=== PATIENT | male | born 1970 | race Caucasian/White ===

== ENCOUNTER 2017-04-10 09:25 | Emergency (ER) | payer BC ==
[2017-04-10 09:41] VITALS: BMI 21.1
[2017-04-10] MEDS ORDERED: SODIUM CHLORIDE 1,000 ML IV STA ×2 (09:56→12:40)
--- NOTE | 2017-04-10 10:08 | PDOC ---
History of Present Illness - General Chief Complaint: Palpitations Stated Complaint: PALPITATIONS, HIGH BP/SUGAR LVL (DIABETIC) Time Seen by Provider: 04/10/17 09:47 History Source: Patient Exam Limitations: No Limitations - History of Present Illness Initial Comments: 04/10/17 10:05 The patient is a 46 year old male with a significant past medical history of hypertension, and diabetes type I (insulin dependent), presenting to the Emergency Department with palpitations, chest pain, and high blood sugar levels. The patient reports that he had two episodes of palpitations, the first was last night after a cup of coffee which resolved after taking two aspirin. He reports that this morning he woke up feeling fine, but started to experience palpitations and chest pain at work around 7:45. He describes the chest pain as an intermittent squeezing feeling in his chest. He admits that this morning his blood sugar was around 340, though it normally is around 200. He also reports that his left arm feels heavy, and reports dizziness. He states that he is compliant with his insulin, 10mg 3 times/day. His last echo was 5 months ago and last stress test was about 1 year ago. The patient denies nausea, vomiting, and diarrhea. Patient denies fever, chills , and cough. Patient denies headache, lightheadedness, and visual changes. Patient denies neck pain, or back pain. PCP: Dr. Abel Yadav Hx: denies cigarette smoking Past History - Past Medical History Allergies/Adverse Reactions: Allergies Allergy/AdvReac Type Severity Reaction Status Date / Time No Known Allergies Allergy Verified 04/10/17 09:28 Home Medications: Ambulatory Orders Albuterol Sulfate Inhaler - [Ventolin HFA Inhaler -] 2 inh PO Q4H 12/04/14 Insulin Aspart [Novolog Flexpen] 0 unit SQ TID 12/04/14 Insulin Lispro Protamin/Lispro [Humalog Mix 75-25 Kwikpen] 0 unit SQ TID Enalapril Maleate [Vasotec -] 10 mg PO DAILY 10/09/16 Diabetes: Yes (insulin dependant) HTN: Yes Psychiatric Problems: Yes (anxiety) Suicide Attempt (Hx): No - Surgical History Abdominal Surgery: Yes (HERNIA) - Family Disease History Family Disease History: Heart Disease: Mother - Immunization History Immunization Up to Date: Yes - Psycho/Social/Smoking Cessation Hx Anxiety: Yes Suicidal Ideation: No Smoking Status: Yes Smoking History: Never smoked Have you smoked in the past 12 months: No Number of Cigarettes Smoked Daily: 0 Information on smoking cessation initiated: No Hx Alcohol Use: No Drug/Substance Use Hx: No Substance Use Type: Alcohol Hx Substance Use Treatment: No Cardiac Specific PMH - Complaint Specific PMHX Valvular Heart Disease: No Review of Systems - Review of Systems Able to Perform ROS?: Yes Comments:: 04/10/17 10:06 CONSTITUTIONAL: Reported: + high blood sugar No reported: Fever, Chills, Diaphoresis, Generalized Weakness, Malaise, Loss of Appetite HEENT: No reported: Rhinorrhea, Nasal Congestion, Throat Pain, Throat Swelling, Difficulty Swallowing, Mouth Swelling, Ear Pain, Eye Pain, Visual Changes CARDIOVASCULAR: Reported: + intermittent squeezing chest pain, + palpitations, + left arm "heaviness" No reported: Syncope, Irregular Heart Rate, Lightheadedness, Peripheral Edema RESPIRATORY: No reported: Cough, Shortness of Breath, SOB with Exertion, Orthopnea, Wheezing , Stridor, Hemoptysis GASTROINTESTINAL: No reported: Abdominal pain, Abdominal Distension, Nausea, Vomiting, Diarrhea, Constipation, Melena, Hematochezia GENITOURINARY: No reported: Dysuria, Frequency, Urgency, Hesitancy, Flank Pain, Genital Pain MUSCULOSKELETAL: No reported: Myalgia, Arthralgia, Joint Swelling, Back pain, Neck Pain SKIN: No reported: Rash, Itching, Pallor HEMATOLOGIC/IMMUNOLOGIC: No reported: Easy Bleeding, Easy Bruising, Lymphadenopathy, Frequent infections ENDOCRINE: No reported: Unexplained Weight Gain, Unexplained Weight Loss, Heat Intolerance , Cold Intolerance NEUROLOGIC: Reported: + dizziness No reported: Headache, Focal Weakness, Paresthesias, Vertigo, Lightheadedness, Unsteady Gait, Seizure, Mental Status Changes, Incontinence PSYCHIATRIC: No reported: Anxiety, Depression *Physical Exam - Vital Signs Last Vital Signs Temp Pulse Resp BP Pulse Ox 98.2 F 86 16 120/67 100 04/10/17 09:28 04/10/17 09:28 04/10/17 09:28 04/10/17 09:28 04/10/17 09:28 - Physical Exam Comments: 04/10/17 10:09 GENERAL: The patient is awake, alert, and fully oriented, Nontoxic - in no acute distress. HEAD: Normocephalic, atraumatic. EYES: extraocular movements intact, sclera anicteric, conjunctiva clear. ENT: Normal voice, Moist mucous membranes. NECK: Normal range of motion, No JVD LUNGS: Breath sounds equal, clear to auscultation bilaterally. No wheezes, no rhonchi, no rales. HEART: Regular rate and rhythm, normal S1 and S2 without murmur, rub or gallop. ABDOMEN: Soft, nontender, normoactive bowel sounds. No guarding, no rebound. No masses. No CVA tenderness EXTREMITIES: Normal range of motion, no edema. No clubbing or cyanosis. No cords , erythema, or tenderness. NEUROLOGICAL: No facial asymmetry, Normal speech, normal gait. PSYCH: Normal mood, normal affect. SKIN: Warm, Dry, normal turgor. *DC/Admit/Observation/Transfer - Referrals Referrals: Abel Moore MD [Primary Care Provider] - - Attestations Scribe Attestion: 04/10/17 10:08 Documentation prepared by Chela Rutledge, acting as medical staff manager for Denis Bradford MD.
--- NOTE | 2017-04-10 10:16 | PDOC ---
History of Present Illness - General History Source: Patient Exam Limitations: No Limitations - History of Present Illness Initial Comments: 04/10/17 10:18 The patient is a 46 year old male with a significant past medical history of hypertension, and diabetes type I (insulin dependent), presenting to the Emergency Department with palpitations, chest pain, and high blood sugar levels. The patient reports that he had two episodes of palpitations, the first was last night after a cup of coffee which resolved after taking two aspirin. He reports that this morning he woke up feeling fine, but started to experience palpitations and chest pain at work around 7:45. He describes the chest pain as an intermittent squeezing feeling in his chest. He admits that this morning his blood sugar was around 340, though it normally is around 200. He also reports that his left arm feels heavy, and reports dizziness. He states that he is compliant with his insulin, 10mg 3 times/day. His last echo was 5 months ago and last stress test was about 1 year ago. The patient denies nausea, vomiting, and diarrhea. Patient denies fever, chills , and cough. Patient denies headache, lightheadedness, and visual changes. Patient denies neck pain, or back pain. PCP: Dr. Abel Yadav Hx: denies cigarette smoking <Chela Rutledge - Last Filed: 04/10/17 11:31> - General History Source: Patient, Old Records Exam Limitations: No Limitations <Denis Bradford - Last Filed: 04/10/17 17:19> - General Chief Complaint: Palpitations Stated Complaint: PALPITATIONS, HIGH BP/SUGAR LVL (DIABETIC) Time Seen by Provider: 04/10/17 09:47 Past History <Chela Rutledge - Last Filed: 04/10/17 11:31> - Past Medical History Diabetes: Yes (insulin dependant) HTN: Yes Psychiatric Problems: Yes (anxiety) Suicide Attempt (Hx): No - Surgical History Abdominal Surgery: Yes (HERNIA) - Family Disease History Family Disease History: Heart Disease: Mother - Immunization History Immunization Up to Date: Yes - Psycho/Social/Smoking Cessation Hx Anxiety: Yes Suicidal Ideation: No Smoking Status: Yes Smoking History: Never smoked Have you smoked in the past 12 months: No Number of Cigarettes Smoked Daily: 0 Information on smoking cessation initiated: No Hx Alcohol Use: No Drug/Substance Use Hx: No Substance Use Type: Alcohol Hx Substance Use Treatment: No <Denis Bradford - Last Filed: 04/10/17 17:19> - Past Medical History Allergies/Adverse Reactions: Allergies Allergy/AdvReac Type Severity Reaction Status Date / Time No Known Allergies Allergy Verified 04/10/17 09:28 Home Medications: Ambulatory Orders Insulin Aspart [Novolog Flexpen] 0 unit SQ PRN 12/04/14 Insulin Lispro Protamin/Lispro [Humalog Mix 75-25 Kwikpen] 10 unit SQ TID Enalapril Maleate [Vasotec -] 10 mg PO DAILY 10/09/16 Paroxetine HCl 10 mg PO DAILY 04/10/17 Review of Systems - Review of Systems Able to Perform ROS?: Yes Comments:: 04/10/17 10:18 CONSTITUTIONAL: Reported: + high blood sugar No reported: Fever, Chills, Diaphoresis, Generalized Weakness, Malaise, Loss of Appetite HEENT: No reported: Rhinorrhea, Nasal Congestion, Throat Pain, Throat Swelling, Difficulty Swallowing, Mouth Swelling, Ear Pain, Eye Pain, Visual Changes CARDIOVASCULAR: Reported: + intermittent squeezing chest pain, + palpitations, + left arm "heaviness" No reported: Syncope, Irregular Heart Rate, Lightheadedness, Peripheral Edema RESPIRATORY: No reported: Cough, Shortness of Breath, SOB with Exertion, Orthopnea, Wheezing , Stridor, Hemoptysis GASTROINTESTINAL: No reported: Abdominal pain, Abdominal Distension, Nausea, Vomiting, Diarrhea, Constipation, Melena, Hematochezia GENITOURINARY: No reported: Dysuria, Frequency, Urgency, Hesitancy, Flank Pain, Genital Pain MUSCULOSKELETAL: No reported: Myalgia, Arthralgia, Joint Swelling, Back pain, Neck Pain SKIN: No reported: Rash, Itching, Pallor HEMATOLOGIC/IMMUNOLOGIC: No reported: Easy Bleeding, Easy Bruising, Lymphadenopathy, Frequent infections ENDOCRINE: No reported: Unexplained Weight Gain, Unexplained Weight Loss, Heat Intolerance , Cold Intolerance NEUROLOGIC: Reported: + dizziness No reported: Headache, Focal Weakness, Paresthesias, Vertigo, Lightheadedness, Unsteady Gait, Seizure, Mental Status Changes, Incontinence PSYCHIATRIC: No reported: Anxiety, Depression <Chela Rutledge - Last Filed: 04/10/17 11:31> *Physical Exam - Vital Signs Last Vital Signs Temp Pulse Resp BP Pulse Ox 98.2 F 86 16 120/67 100 04/10/17 09:28 04/10/17 09:28 04/10/17 09:28 04/10/17 09:28 04/10/17 09:28 - Physical Exam Comments: 04/10/17 10:19 GENERAL: The patient is awake, alert, and fully oriented, Nontoxic - in no acute distress. HEAD: Normocephalic, atraumatic. EYES: extraocular movements intact, sclera anicteric, conjunctiva clear. ENT: Normal voice, Moist mucous membranes. NECK: Normal range of motion, No JVD LUNGS: Breath sounds equal, clear to auscultation bilaterally. No wheezes, no rhonchi, no rales. HEART: Regular rate and rhythm, normal S1 and S2 without murmur, rub or gallop. ABDOMEN: Soft, nontender, normoactive bowel sounds. No guarding, no rebound. No masses. No CVA tenderness EXTREMITIES: Normal range of motion, no edema. No clubbing or cyanosis. No cords , erythema, or tenderness. NEUROLOGICAL: No facial asymmetry, Normal speech, normal gait. PSYCH: Normal mood, normal affect. SKIN: Warm, Dry, normal turgor. <Chela Rutledge - Last Filed: 04/10/17 11:31> - Vital Signs Last Vital Signs Temp Pulse Resp BP Pulse Ox 98.2 F 86 16 120/67 100 04/10/17 09:28 04/10/17 09:28 04/10/17 09:28 04/10/17 09:28 04/10/17 09:28 <Denis Bradford - Last Filed: 04/10/17 17:19> Heart Score/ECG Review #1 ECG reviewed & interpreted by me at: 09:55 04/10/17 10:01 NSR 81, normal axis, normal intervals, QTC 394 msec, concave upward JULIANNE II, V3- V6 with no reciprocal depression. unchanged from October 09, 2016 <Denis Bradford - Last Filed: 04/10/17 17:19> ED Treatment Course - LABORATORY CBC & Chemistry Diagram: 04/10/17 10:19 04/10/17 10:19 - RADIOLOGY Radiograph Interpretation: 04/10/17 11:00 Chest XRay As reviewed by Dr. Elizabeth Jasso IMPRESSION: No acute disease in the chest. <Chela Rutledge - Last Filed: 04/10/17 11:31> - LABORATORY CBC & Chemistry Diagram: 04/10/17 10:19 04/10/17 10:19 - RADIOLOGY Radiology Studies Ordered: Category Date Time Status CHEST PA & LAT [RAD] Stat Radiology 04/10/17 09:56 Ordered <Denis Bradford - Last Filed: 04/10/17 17:19> Medical Decision Making - Medical Decision Making 04/10/17 11:31 Dr. Moore was called at his office at 11:25. Dr. Moore returned call and spoke to Dr. Bradford about the patient's care. <Chela Rutledge - Last Filed: 04/10/17 11:31> - Medical Decision Making 04/10/17 10:02 A portion of this note was documented by scribe services under my direction. I have reviewed the details of the note, within reason, and agree with the documentation with the following case summary and management plan written by me. Patient treated in the ED. Nursing notes are reviewed and incorporated into the medical decision-making. Vital signs reviewed. Peripheral IV access obtained by the nurse, laboratory studies are drawn and sent, reviewed and interpreted by myself. Vital Signs Temp Pulse Resp BP Pulse Ox 98.2 F 86 16 120/67 100 04/10/17 09:28 04/10/17 09:28 04/10/17 09:28 04/10/17 09:28 04/10/17 09:28 46-year-old male with past medical history of type 1 diabetes who takes 10 units of insulin 3 times a day who presents with palpitations and chest discomfort. The patient reports yesterday, he had drinking a coffee and started developing palpitations that lasted for several hours that improved with 2 baby aspirins and his paroxetine, which he has been taken for his anxiety. Stated that his symptoms improved. However, patient was on his way to work when he felt some her symptoms including chest discomfort radiating to left arm but no sepsis short of breath. Nonexertional. He came to the ED for evaluation. The patient had an echocardiogram 6 months ago reportedly negative and a walking stress test one year ago reportedly negative. Patient states that he had these similar symptoms before and was told that it was anxiety. He has also noted that his sugars are elevated 300s despite taking his insulin. We'll rule out DKA. We'll also rule out my [place]. However, I suspect that this is more likely anxiety and cardiac. Patient will need two troponins and we'll touch base with the patient's primary care physician. 04/10/17 17:15 CBC, BMP 04/10/17 10:19 04/10/17 10:19 CMP Sodium 138 mmol/L (136-145) 04/10/17 10:19 Potassium 3.7 mmol/L (3.5-5.1) 04/10/17 10:19 Chloride 104 mmol/L (98-107) 04/10/17 10:19 Carbon Dioxide 27 mmol/L (21-32) 04/10/17 10:19 Anion Gap 7 (8-16) L 04/10/17 10:19 BUN 11 mg/dL (7-18) D 04/10/17 10:19 Creatinine 1.1 mg/dL (0.7-1.3) 04/10/17 10:19 Creat Clearance w eGFR > 60 (>60) 04/10/17 10:19 POC Glucometer [id number] UNITS (()) 04/10/17 12:19 Random Glucose 34 mg/dL (74-106) L* D 04/10/17 10:19 Calcium 9.3 mg/dL (8.5-10.1) 04/10/17 10:19 Total Bilirubin 0.5 mg/dL (0.2-1.0) D 04/10/17 10:19 AST 19 U/L (15-37) 04/10/17 10:19 ALT 22 U/L (12-78) 04/10/17 10:19 Alkaline Phosphatase 94 U/L (45-117) D 04/10/17 10:19 Creatine Kinase 81 IU/L (39-308) 04/10/17 16:01 Troponin I < 0.02 ng/ml (0.00-0.05) 04/10/17 16:01 Total Protein 7.5 g/dl (6.4-8.2) D 04/10/17 10:19 Albumin 4.1 g/dl (3.4-5.0) D 04/10/17 10:19 Lipase 143 U/L (73-393) 04/10/17 10:19 Patient's troponin is negative x 2. Pt's pain started at 7:30 am. 2nd trop drawn at 3:30 pm. I had discussed with Dr. Moore. I suspect this is likely anxiety. Patient feels much more reasurred. He agrees that the patient can follow up as an outpatient with him. NOted is glucose of 34 which was given amp of dextrose and juice. Pt confirms that he had taken his insulin this morning but forgot to eat with it. After observing for several hours, patient feels well and would like to go home. Discharge diagnosis: atypical chest pain I discussed the physical exam findings, ancillary test results and final diagnoses with the patient. I answered all of the patient's questions. The patient was satisfied with the care received and felt comfortable with the discharge plan and treatment plan. The patient will call their primary care physician within 24 hours to arrange follow-up and will return to the Emergency Department with any new, persistant or worsening symptoms. <Denis Bradford - Last Filed: 04/10/17 17:19> *DC/Admit/Observation/Transfer - Attestations Scribe Attestion: 04/10/17 10:20 Documentation prepared by Chela Rutledge, acting as medical imaging tech for Denis Bradford MD. <Chela Rutledge - Last Filed: 04/10/17 11:31> - Discharge Dispostion Admit: No <Denis Bradford - Last Filed: 04/10/17 17:19> Diagnosis at time of Disposition: Atypical chest pain - Discharge Dispostion Disposition: HOME Condition at time of disposition: Good - Referrals Referrals: Abel Moore MD [Primary Care Provider] - - Patient Instructions Printed Discharge Instructions: DI for Atypical Chest Pain Additional Instructions: Your EKG, blood work and chest x-ray is unremarkable. Please follow-up with your primary care physician.
[2017-04-10 10:32] LABS: BASOPHIL 0.5 % (0-2.0); MCH 30.4 pg (25.7-33.7); MCHC 34.6 g/dl (32.0-35.9); MEAN CELL VOLUME 87.8 fl (80-96); MEAN PLT VOLUME 10.5 fl (7.5-11.1); NEUTROPHILS 54.1 % (42.8-82.8); PLATELET COUNT 223 K/MM3 (134-434); RDW 13.1 % (11.9-15.9); WHITE BLOOD COUNT 7.3 K/mm3 (4.0-10.0)
[2017-04-10 10:34] LABS: URINE APPEARANCE CLEAR; URINE BILIRUBIN NEGATIVE (NEGATIVE); URINE BLOOD NEGATIVE (NEGATIVE); URINE COLOR YELLOW; URINE GLUCOSE (UA) 3+ (NEGATIVE); URINE KETONE TRACE (NEGATIVE); URINE LEUK ESTERASE NEGATIVE (NEGATIVE); URINE NITRITE NEGATIVE (NEGATIVE); URINE PROTEIN NEGATIVE (NEGATIVE); URINE UROBILINOGEN NEGATIVE E.U./dl (0.2-1.0)
[2017-04-10 11:00] LABS: ALBUMIN 4.1 g/dl (3.4-5.0); ANION GAP 7 (8-16); BILIRUBIN,TOTAL 0.5 mg/dL (0.2-1.0); CALCIUM 9.3 mg/dL (8.5-10.1); CO2 27 mmol/L (21-32); COCKROFT - GAULT 84.8; CREATININE 1.1 mg/dL (0.7-1.3); SGOT/AST 19 U/L (15-37); SGPT/ALT 22 U/L (12-78); TOT PROT 7.5 g/dl (6.4-8.2)
[2017-04-10 11:03] LABS: ALK PHOS 94 U/L (45-117); TROPONIN I < 0.02 ng/ml (0.00-0.05)
[2017-04-10 11:10] LABS: GLUCOSE,RANDOM 34 mg/dL (74-106)
[2017-04-10] MEDS ORDERED: DEXTROSE 50%-WATER 50 ML VIAL IVPUSH ONE (11:14)
[2017-04-10] MEDS ORDERED: DEXTROSE 50%-WATER 50 ML DISP.SYRIN ONE (11:16)
[2017-04-10 11:54] LABS: ACETONE SERUM NEGATIVE (NEGATIVE)
[2017-04-10] MEDS ORDERED: HEMOQUE TEST 1 EACH EACH ONE (12:16)
--- NOTE | 2017-04-10 16:29 | EKG ---
Test Reason : Blood Pressure : / mmHG Vent. Rate : 081 BPM Atrial Rate : 081 BPM P-R Int : 146 ms QRS Dur : 088 ms QT Int : 340 ms P-R-T Axes : 075 074 061 degrees QTc Int : 394 ms NORMAL SINUS RHYTHM EARLY REPOLARIZATION NORMAL ECG WHEN COMPARED WITH ECG OF 09-OCT-2016 07:56, NO SIGNIFICANT CHANGE WAS FOUND Confirmed by JADON CHAN MD ([id number]) on 04/10/2017 4:29:20 PM Referred By: Confirmed By:JADON CHAN MD
[2017-04-10 16:50] LABS: TROPONIN I < 0.02 ng/ml (0.00-0.05)
[2017-04-10 18:15] VITALS: BP 114/73; PULSE 68; TEMP 98.1
== END 2017-04-10 17:40 | disposition home or self-care (01) ==
LOC: JER 09:25
PROC: 3E0337Z Introduction of Electrolytic and Water Balance Substance into Peripheral Vein, Percutaneous Approach (ICD-10-PCS; principal; 2017-04-10)
PROC: 3E033GC Introduction of Other Therapeutic Substance into Peripheral Vein, Percutaneous Approach (ICD-10-PCS; 2017-04-10)
DX: R07.89 Other chest pain (principal); E10.65 Type 1 diabetes mellitus with hyperglycemia; Z79.4 Long term (current) use of insulin; F41.9 Anxiety disorder, unspecified
CPT/HCPCS: 36415; 71020-TC; 80053; 81003; 82009; 82550; 83690; 84484; 85025; 93005; 93010; 99285-25

== ENCOUNTER 2017-09-02 21:36 | Emergency (ER) | payer BC ==
[2017-09-02 21:47] VITALS: BP 144/83; PULSE 69; TEMP 98.4; BMI 20.6
--- NOTE | 2017-09-02 22:22 | PDOC ---
History of Present Illness - General History Source: Patient Exam Limitations: No Limitations - History of Present Illness Initial Comments: 09/02/17 22:40 The patient is a 46 year old male, with a significant past medical history of IDDM, HTN, Anxiety who presents to the emergency department with chest pain today. Patient states there was jobsite accident which resulted in construction material collapsing. Patient and fellow employees were unharmed however since the incident, patient has been increasingly anxious. Patient experienced chest pain associated with palpitations, SOB and nausea. Patient describes pain is midsternal, nonradiating associated with SOB upon deep inspiration. Patient reports taking an Aspirin 81 mg with no relief. He denies headache or dizziness. He denies fever, chills, abdominal pain, nausea , vomit, diarrhea or constipation. He denies dysuria, frequency, urgency or hematuria. Patient denies sick contacts or recent travel. <Amanda Romero - Last Filed: 09/02/17 22:40> - General History Source: Patient <Av Sethi - Last Filed: 09/03/17 19:31> - General Chief Complaint: Chest Pain Stated Complaint: CHEST PAIN Time Seen by Provider: 09/02/17 22:17 Past History <Amanda Romero - Last Filed: 09/02/17 22:40> - Past Medical History Diabetes: Yes (insulin dependant) HTN: Yes Psychiatric Problems: Yes (anxiety) - Surgical History Abdominal Surgery: Yes (HERNIA) - Family Disease History Family Disease History: Heart Disease: Mother - Immunization History Immunization Up to Date: Yes - Suicide/Smoking/Psychosocial Hx Smoking Status: Yes Smoking History: Never smoked Have you smoked in the past 12 months: No Number of Cigarettes Smoked Daily: 0 Hx Alcohol Use: No Drug/Substance Use Hx: No Substance Use Type: Alcohol Hx Substance Use Treatment: No <Av Sethi - Last Filed: 09/03/17 19:31> - Past Medical History Allergies/Adverse Reactions: Allergies Allergy/AdvReac Type Severity Reaction Status Date / Time No Known Allergies Allergy Verified 09/02/17 21:44 Home Medications: Ambulatory Orders Insulin Aspart [Novolog Flexpen] 0 unit SQ PRN 12/04/14 Insulin Lispro Protamin/Lispro [Humalog Mix 75-25 Kwikpen] 10 unit SQ TID 01/25/ 15 Enalapril Maleate [Vasotec -] 10 mg PO DAILY 10/09/16 Paroxetine HCl 10 mg PO DAILY 04/10/17 Insulin Degludec [Tresiba Flextouch U-100] 100 unit SQ HS 09/02/17 Review of Systems - Review of Systems Able to Perform ROS?: Yes Comments:: 09/02/17 22:51 CONSTITUTIONAL: Absent: fever, chills, diaphoresis, generalized weakness, malaise, loss of appetite HEENT: Absent: rhinorrhea, nasal congestion, throat pain, throat swelling, difficulty swallowing, mouth swelling, ear pain, eye pain, visual Changes CARDIOVASCULAR: +chest pain, palpitations. Absent: syncope, irregular heart rate, lightheadedness, peripheral edema RESPIRATORY: +shortness of breath Absent: cough, dyspnea with exertion, orthopnea, wheezing, stridor, hemoptysis GASTROINTESTINAL: +nausea Absent: abdominal pain, abdominal distension, vomiting, diarrhea, constipation, melena, hematochezia GENITOURINARY: Absent: dysuria, frequency, urgency, hesitancy, hematuria, flank pain, genital pain MUSCULOSKELETAL: Absent: myalgia, arthralgia, joint swelling SKIN: Absent: rash, itching, pallor HEMATOLOGIC/IMMUNOLOGIC: Absent: easy bleeding, easy bruising, lymphadenopathy, frequent infections ENDOCRINE: Absent: unexplained weight gain, unexplained weight loss, heat intolerance, cold intolerance NEUROLOGIC: Absent: headache, focal weakness or paresthesias, dizziness, unsteady gait, seizure, mental status changes, bladder or bowel incontinence PSYCHIATRIC: Absent: anxiety, depression, suicidal or homicidal ideation, hallucinations. <Amanda Romero - Last Filed: 09/02/17 22:40> *Physical Exam - Vital Signs Last Vital Signs Temp Pulse Resp BP Pulse Ox 98.4 F 69 20 144/83 100 09/02/17 21:44 09/02/17 21:44 09/02/17 21:44 09/02/17 21:44 09/02/17 21:44 - Physical Exam Comments: 09/02/17 22:51 GENERAL: Well developed, well nourished. Awake and alert. In no acute distress. HEENT: Normocephalic, atraumatic. PERRLA, EOMI. No conjunctival pallor. Sclerae are non -icteric. Moist mucous membranes. Oropharynx is clear. NECK: Supple. Full ROM. No JVD. Carotid pulses 2+ and symmetric, without bruits. No thyromegaly. No lymphadenopathy. CARDIOVASCULAR: Regular rate and rhythm. No murmurs, rubs, or gallops. Distal pulses are 2+ and symmetric. PULMONARY: No evidence of respiratory distress. Lungs clear to auscultation bilaterally. No wheezing, rales or rhonchi. ABDOMINAL: Soft. Non-tender. Non-distended. No rebound or guarding. No organomegaly. Normoactive bowel sounds. MUSCULOSKELETAL Normal range of motion at all joints. No bony deformities or tenderness. No CVA tenderness. EXTREMITIES: No cyanosis. No clubbing. No edema. No calf tenderness. SKIN: Warm and dry. Normal capillary refill. No rashes. No jaundice. NEUROLOGICAL: Alert, awake, appropriate. Cranial nerves 2-12 intact. No deficits to light touch and temperature in face, upper extremities and lower extremities. No motor deficits in the in face, upper extremities and lower extremities. Normoreflexic in the upper and lower extremities. Normal speech. Toes are downgoing bilaterally. Gait is normal without ataxia. PSYCHIATRIC: Cooperative. Good eye contact. Appropriate mood and affect. <Amanda Romero - Last Filed: 09/02/17 22:40> - Vital Signs Last Vital Signs Temp Pulse Resp BP Pulse Ox 98.4 F 69 20 144/83 100 09/02/17 21:44 09/02/17 21:44 09/02/17 21:44 09/02/17 21:44 09/02/17 21:44 <Av Sethi - Last Filed: 09/03/17 19:31> ED Treatment Course - LABORATORY CBC & Chemistry Diagram: 09/02/17 22:37 09/02/17 22:37 <Av Sethi - Last Filed: 09/03/17 19:31> Medical Decision Making - Medical Decision Making 09/03/17 19:31 Dr. Sethi: The scribe's documentation has been prepared under my direction and personally reviewed by me in its entirery. I confirm that the note above accurately reflects all work, treatment, procedures, and medical decision making performed by me. <Av Sethi - Last Filed: 09/03/17 19:31> *DC/Admit/Observation/Transfer - Attestations Scribe Attestion: 09/02/17 22:51 Documentation prepared by Amanda Romero, acting as medical director/head team physician for Av Sethi DO. <Amanda Romero - Last Filed: 09/02/17 22:40> - Discharge Dispostion Admit: No <Av Sethi - Last Filed: 09/03/17 19:31> Diagnosis at time of Disposition: Chest pain - Patient Instructions Printed Discharge Instructions: DI for Chest Pain Additional Instructions: Please follow up with your doctor as soon as possible. Return if symptoms become worse. - Post Discharge Activity Forms/Work/School Notes: Back to Work
[2017-09-02 22:45] LABS: BASOPHIL 1.1 % (0-2.0); EOSINOPHIL 1.7 % (0-4.5); MCH 31.2 pg (25.7-33.7); MCHC 35.1 g/dl (32.0-35.9); MEAN CELL VOLUME 88.8 fl (80-96); MEAN PLT VOLUME 9.6 fl (7.5-11.1); NEUTROPHILS 54.7 % (42.8-82.8); PLATELET COUNT 225 K/MM3 (134-434); RDW 13.3 % (11.9-15.9)
[2017-09-02 23:06] LABS: INR 1.23 (0.82-1.09); PROTHROMBIN TIME (PATIENT) 13.9 SEC (9.98-11.88)
[2017-09-02 23:17] LABS: ALBUMIN 3.3 g/dl (3.4-5.0); ANION GAP 7 (8-16); CALCIUM 8.4 mg/dL (8.5-10.1); CO2 28 mmol/L (21-32); CREATININE 1.1 mg/dL (0.7-1.3); GLUCOSE,RANDOM 174 mg/dL (74-106); MAGNESIUM 2.1 mg/dL (1.8-2.4); SGOT/AST 15 U/L (15-37); SGPT/ALT 17 U/L (12-78)
[2017-09-02 23:21] LABS: ALK PHOS 71 U/L (45-117); BILIRUBIN,TOTAL 0.6 mg/dL (0.2-1.0); CPK 141 IU/L (39-308); TOT PROT 6.2 g/dl (6.4-8.2); TROPONIN I < 0.02 ng/ml (0.00-0.05)
--- NOTE | 2017-09-03 13:22 | EKG ---
Test Reason : Blood Pressure : / mmHG Vent. Rate : 058 BPM Atrial Rate : 058 BPM P-R Int : 130 ms QRS Dur : 094 ms QT Int : 402 ms P-R-T Axes : 070 066 053 degrees QTc Int : 394 ms SINUS BRADYCARDIA OTHERWISE NORMAL ECG WHEN COMPARED WITH ECG OF 10-APR-2017 09:32, NO SIGNIFICANT CHANGE WAS FOUND Confirmed by GRZEGORZ SPRAGUE MD ([id number]) on 09/03/2017 1:22:10 PM Referred By: Confirmed By:GRZEGORZ SPRAGUE MD
== END 2017-09-02 23:44 | disposition home or self-care (01) ==
LOC: JER 21:36
DX: R07.9 Chest pain, unspecified (principal); I10 Essential (primary) hypertension; E11.9 Type 2 diabetes mellitus without complications; R00.2 Palpitations; X58.XXXA Exposure to other specified factors, initial encounter; Y93.89 Activity, other specified; Y92.89 Other specified places as the place of occurrence of the external cause; Y99.0 Civilian activity done for income or pay
CPT/HCPCS: 36415; 80053; 82550; 83735; 84484; 85025; 85610; 93005; 93010; 99284-25

== ENCOUNTER 2018-05-17 00:52 | Emergency (ER) | payer OTHER ==
[2018-05-17 01:12] VITALS: BP 102/56; PULSE 60; TEMP 97.7; BMI 25.8
[2018-05-17] MEDS ORDERED: KETOROLAC TROMETHAMINE 60 MG/2 ML VIAL IM ONE (03:44)
[2018-05-17] MEDS ORDERED: diazePAM 5 MG TABLET PO ONE (03:44)
--- NOTE | 2018-05-17 03:46 | PDOC ---
History of Present Illness - General History Source: Patient Exam Limitations: No Limitations - History of Present Illness Initial Comments: 05/17/18 06:33 The patient is a 47 year old male with no significant past medical history who presents to the emergency department for evaluation of left sided back pain and left thigh pain. The patient reports a 3 week history of worsening left sided back pain. He describes the pain as radiating to the left leg. He notes he is required to lift heavy objects at his job which may have caused him some pain. Pt states worsening leg pain has become unbearable prompting him to visit the ED for further evaluation. The patient denies chest pain, shortness of breath, headache, and dizziness. Denies fever, chills, nausea, vomiting, and bowel/urinary symptoms. Allergies: NKDA Social History: No reported alcohol, cigarette, or drug use. PCP: Dr. Moore <Connor Thomas - Last Filed: 05/17/18 06:33> <Denisha Monzon - Last Filed: 05/18/18 04:53> - General Chief Complaint: Back Pain Stated Complaint: BACK INJURY Time Seen by Provider: 05/17/18 02:49 Past History <Connor Thomas - Last Filed: 05/17/18 06:33> - Past Medical History COPD: No Diabetes: Yes (insulin dependant) HTN: Yes Psychiatric Problems: Yes (anxiety) - Surgical History Abdominal Surgery: Yes (HERNIA) - Family Disease History Family Disease History: Heart Disease: Mother - Immunization History Immunization Up to Date: Yes - Suicide/Smoking/Psychosocial Hx Smoking Status: Yes Smoking History: Never smoked Have you smoked in the past 12 months: No Number of Cigarettes Smoked Daily: 0 Information on smoking cessation initiated: No Hx Alcohol Use: No Drug/Substance Use Hx: No Substance Use Type: Alcohol Hx Substance Use Treatment: No <Denisha Monzon - Last Filed: 05/18/18 04:53> - Past Medical History Allergies/Adverse Reactions: Allergies Allergy/AdvReac Type Severity Reaction Status Date / Time No Known Allergies Allergy Verified 05/17/18 01:10 Home Medications: Ambulatory Orders Enalapril Maleate [Vasotec -] 10 mg PO DAILY 10/09/16 Insulin Pump Cartridge [Omnipod] 1 each SQ ASDIR 04/20/18 Ibuprofen [Motrin -] 600 mg PO TID #30 tablet 05/17/18 Methocarbamol [Robaxin -] 500 mg PO TID #30 tablet 05/17/18 Review of Systems - Review of Systems Able to Perform ROS?: Yes Comments:: GENERAL/CONSTITUTIONAL: No fever or chills. No weakness. HEAD, EYES, EARS, NOSE AND THROAT: No change in vision. No ear pain or discharge. No sore throat. CARDIOVASCULAR: No chest pain or shortness of breath. RESPIRATORY: No cough, wheezing, or hemoptysis. GASTROINTESTINAL: No nausea, vomiting, diarrhea or constipation. GENITOURINARY: No dysuria, frequency, or change in urination. MUSCULOSKELETAL: (+)Left sided back pain. (+)Left leg pain. SKIN: No rash NEUROLOGIC: No headache, vertigo, loss of consciousness, or change in strength/ sensation. ENDOCRINE: No increased thirst. No abnormal weight change. HEMATOLOGIC/LYMPHATIC: No anemia, easy bleeding, or history of blood clots. ALLERGIC/IMMUNOLOGIC: No hives or skin allergy. <Connor Thomas - Last Filed: 05/17/18 06:33> *Physical Exam - Vital Signs Last Vital Signs Temp Pulse Resp BP Pulse Ox 97.7 F 60 20 102/56 99 05/17/18 01:10 05/17/18 01:10 05/17/18 01:10 05/17/18 01:10 05/17/18 01:10 - Physical Exam Comments: GENERAL: Awake, alert, and fully oriented, in no acute distress HEAD: No signs of trauma EYES: PERRLA, EOMI, sclera anicteric, conjunctiva clear ENT: Auricles normal inspection, hearing grossly normal, nares patent, oropharynx clear without exudates. Moist mucosa NECK: Normal ROM, supple, no lymphadenopathy, JVD, or masses LUNGS: Breath sounds equal, clear to auscultation bilaterally. No wheezes, and no crackles HEART: Regular rate and rhythm, normal S1 and S2, no murmurs, rubs or gallops ABDOMEN: Soft, nontender, normoactive bowel sounds. No guarding, no rebound. No masses BACK: (+)Lumbar tenderness over the spine. Severe paraspinal spasm in lumbar area. EXTREMITIES: Normal range of motion, no edema. No clubbing or cyanosis. No cords, erythema, or tenderness NEUROLOGICAL: Cranial nerves II through XII grossly intact. Normal speech, normal gait SKIN: Warm, Dry, normal turgor, no rashes or lesions noted. <Connor Thomas - Last Filed: 05/17/18 06:33> - Vital Signs Last Vital Signs Temp Pulse Resp BP Pulse Ox 97.7 F 60 20 102/56 99 05/17/18 01:10 05/17/18 01:10 05/17/18 01:10 05/17/18 01:10 05/17/18 01:10 <Denisha Monzon - Last Filed: 05/18/18 04:53> ED Treatment Course - Medications Given in the ED: ED Medications Discontinued Medications Generic Name Dose Route Start Last Admin Trade Name Heber PRN Reason Stop Dose Admin Diazepam 5 mg 05/17/18 03:44 05/17/18 04:06 Valium - PO 05/17/18 03:45 5 mg ONCE ONE Administration Ketorolac Tromethamine 60 mg 05/17/18 03:44 05/17/18 04:05 Toradol Injection - IM 05/17/18 03:45 60 mg ONCE ONE Administration Oxycodone/Acetaminophen 2 combo 05/17/18 03:44 05/17/18 04:05 Percocet 5/325 - PO 05/17/18 03:45 2 combo ONCE ONE Administration <Connor Thomas - Last Filed: 05/17/18 06:33> Medical Decision Making - Medical Decision Making 05/17/18 05:44 Patient Name: ISAAC GONZALEZ THIS IS A PRELIMINARY REPORT FROM [facility] DATE OF SERVICE: 2018-05-17 04:39:28 IMAGES: 409 EXAM: CT LUMBAR SPINE CT W/O CONTRAST HISTORY: Lower back pain COMPARISON: None. FINDINGS: Lumbar vertebral bodies are morphologically normal with no fracture. Intervertebral disc spaces appear normal in height. There is a small disc bulge at L3-L4 with mild central spinal canal stenosis. There is a small central bulge at L4-L5 without stenosis IMPRESSION: Small disc bulge at L3-L4 with mild stenosis 05/18/18 04:52 Pt will follow with ortho spine and neuro and he can get an MRI for further eval of his illness. <Denisha Monzon - Last Filed: 05/18/18 04:53> *DC/Admit/Observation/Transfer - Attestations Scribe Attestion: Documentation prepared by Connor Thomas, acting as medical device sales representative for Denisha Monzon MD. <Connor Thomas - Last Filed: 05/17/18 06:33> - Discharge Dispostion Decision to Admit order: No <Denisha Monzon - Last Filed: 05/18/18 04:53> Diagnosis at time of Disposition: Bulging lumbar disc, Spinal stenosis of lumbar region, Radiculopathy due to lumbar intervertebral disc disorder - Discharge Dispostion Disposition: HOME Condition at time of disposition: Stable - Prescriptions Prescriptions: Ibuprofen [Motrin -] 600 mg PO TID #30 tablet Methocarbamol [Robaxin -] 500 mg PO TID #30 tablet - Referrals Referrals: Abel Moore MD [Primary Care Provider] - Jose Do MD [Staff Physician] - - Patient Instructions Printed Discharge Instructions: Spinal Stenosis, Herniated Disc, Lumbar Radiculopathy - Post Discharge Activity Forms/Work/School Notes: Back to Work
[2018-05-17] MEDS ORDERED: diazePAM 5 MG TABLET ONE (03:56)
[2018-05-17] MEDS ORDERED: KETOROLAC TROMETHAMINE 60 MG/2 ML VIAL ONE (03:56)
== END 2018-05-17 06:00 | disposition home or self-care (01) ==
LOC: JER 00:52
PROC: 3E0233Z Introduction of Anti-inflammatory into Muscle, Percutaneous Approach (ICD-10-PCS; principal; 2018-05-17)
DX: M54.16 Radiculopathy, lumbar region (principal); M48.061 Spinal stenosis, lumbar region without neurogenic claudication
CPT/HCPCS: 72131-TC; 99281-25

== ENCOUNTER 2019-11-09 19:59 | Emergency (ER) | payer OTHER ==
[2019-11-09 20:20] VITALS: BMI 23.5
[2019-11-09] MEDS ORDERED: SODIUM CHLORIDE 1,000 ML IV STA ×2 (20:46→22:25)
[2019-11-09] MEDS ORDERED: ONDANSETRON 4 MG/2 ML VIAL IVPUSH ONE (20:46)
[2019-11-09] MEDS ORDERED: ACETAMINOPHEN 1000 MG/100 ML VIAL (NON FORMULARY) IVPB ONE (20:46)
[2019-11-09] MEDS ORDERED: FAMOTIDINE 20 MG/50 ML IVPB 20 MG/50 ML MG IVPB ONE ×2 (20:46→20:54)
[2019-11-09] MEDS ORDERED: ONDANSETRON 4 MG/2 ML VIAL ONE (20:54)
[2019-11-09] MEDS ORDERED: ACETAMINOPHEN INJECTION 100 ML IVPB ONE (20:54)
--- NOTE | 2019-11-09 21:06 | PDOC ---
History of Present Illness - General Chief Complaint: Nausea/Vomiting Stated Complaint: FLU SYX Time Seen by Provider: 11/09/19 20:34 History Source: Patient Exam Limitations: No Limitations - History of Present Illness Initial Comments: 11/09/19 21:07 Patient is 48M with history of T1DM here today complaining of 1 day of fever, chills, vomiting and bodyaches. Patient reports several positive sick contacts in his family. He also complains of some chest pain after an episode of vomiting. Patient reports that his blood sugars have spiked to the 500s. Endorses associated headaches. Denies abdominal pain, dysuria. Past History - Past Medical History Allergies/Adverse Reactions: Allergies Allergy/AdvReac Type Severity Reaction Status Date / Time No Known Allergies Allergy Verified 05/17/18 01:10 Home Medications: Ambulatory Orders Insulin Glargine,Hum.rec.anlog [Basaglar Kwikpen U-100] 11 unit SQ HS 11/09/19 Insulin Lispro [Admelog Solostar] 9 unit SQ TID 11/09/19 Oseltamivir Phosphate [Tamiflu -] 75 mg PO BID #10 capsule 11/09/19 COPD: No Diabetes: Yes (insulin dependant) HTN: Yes Psychiatric Problems: Yes (anxiety) - Surgical History Abdominal Surgery: Yes (HERNIA) - Immunization History Immunization Up to Date: Yes - Psycho Social/Smoking Cessation Hx Smoking Status: Yes Smoking History: Never smoked Have you smoked in the past 12 months: No Number of Cigarettes Smoked Daily: 0 Hx Alcohol Use: No Drug/Substance Use Hx: No Substance Use Type: Alcohol Hx Substance Use Treatment: No Review of Systems - Review of Systems Able to Perform ROS?: Yes Comments:: 11/09/19 21:10 GENERAL/CONSTITUTIONAL: +fever +chills. No weakness. HEAD, EYES, EARS, NOSE AND THROAT: No change in vision. No sore throat. CARDIOVASCULAR: No chest pain or shortness of breath RESPIRATORY: +cough, no wheezing, or hemoptysis. GASTROINTESTINAL: +nausea, +vomiting, no diarrhea or constipation. GENITOURINARY: No dysuria, frequency, or change in urination. MUSCULOSKELETAL: +myalgias. No neck or back pain. SKIN: No rash NEUROLOGIC: +headache, no vertigo, loss of consciousness, or change in strength/ sensation. ENDOCRINE: No increased thirst. No abnormal weight change HEMATOLOGIC/LYMPHATIC: No anemia, easy bleeding, or history of blood clots. ALLERGIC/IMMUNOLOGIC: No hives or skin allergy. *Physical Exam - Vital Signs Last Vital Signs Temp Pulse Resp BP Pulse Ox 102.4 F H 107 H 20 127/66 98 11/09/19 20:08 11/09/19 20:08 11/09/19 20:08 11/09/19 20:08 11/09/19 20:08 - Physical Exam 11/09/19 21:11 GENERAL: Awake, alert, and fully oriented, ill appearing HEAD: No signs of trauma, normocephalic, atraumatic EYES: PERRLA, EOMI, sclera anicteric, conjunctiva clear ENT: Auricles normal inspection, hearing grossly normal, nares patent, oropharynx clear without exudates. Moist mucosa NECK: Normal ROM, supple, no lymphadenopathy, JVD, or masses LUNGS: No distress, speaks full sentences, clear to auscultation bilaterally HEART: Regular rhythm, tachycardic, normal S1 and S2, no murmurs, rubs or gallops, peripheral pulses normal and equal bilaterally. ABDOMEN: Soft, nontender, normoactive bowel sounds. No guarding, no rebound. No masses EXTREMITIES: Normal inspection, Normal range of motion, no edema. No clubbing or cyanosis. NEUROLOGICAL: Cranial nerves II through XII grossly intact. Normal speech, no focal sensorimotor deficits SKIN: Warm, Dry, normal turgor, no rashes or lesions noted. ED Treatment Course - LABORATORY CBC & Chemistry Diagram: 11/09/19 21:15 11/09/19 21:15 - RADIOLOGY Radiology Studies Ordered: Category Date Time Status CHEST X-RAY PORTABLE* [RAD] Stat Radiology 11/09/19 20:48 Taken Medical Decision Making - Medical Decision Making 11/09/19 21:12 Patient is 48M with history of IDDM here today complaining of flu like symptoms and concern for DKA. Vitals notable for fever, tachycardia. Will workup broadly given T1DM and possible dka. DDx includes, but is not limited to: flu, other viral syndrome, pneumonia. Will treat with fluids, tylenol, zofran, pepcid. Dispo pending source, dka evaluation. 11/09/19 21:32 EKG shows NSR with rate of 93. No st elevations/depressions. No signs of hyperkalemia. Normal intervals. Normal t wave morphology. Normal axis. 11/09/19 22:31 CBC shows leukocytosis. VBG shows no acidosis CMP shows hyperglycemia <300, otherwise reassuing BHB positive, likely due to decreased po intake Patient not in HHS/DKA, believe patient is dehydrated. Patient reassessed, resting comfortably, will give 2nd liter and reassess. Flu positive Tamiflu given and sent to patient's pharmacy. CXR shows no signs of pneumonia. UA shows no signs of infection. 11/10/19 00:09 Fever improved. Patient feeling better, asking to go home. Will discharge with return precautions. Discharge - Discharge Information Problems reviewed: Yes Clinical Impression/Diagnosis: Influenza A Condition: Good Disposition: HOME - Admission No - Additional Discharge Information Prescriptions: Oseltamivir Phosphate [Tamiflu -] 75 mg PO BID #10 capsule - Follow up/Referral Referrals: Javier Webster MD [Primary Care Provider] - - Patient Discharge Instructions Patient Printed Discharge Instructions: DI for Influenza -- Adult Additional Instructions: Please return if you have worsening or concerning symptoms, especially difficulties with breathing and vomiting. Please follow up with your doctor this week. - Post Discharge Activity Work/Back to School Note: Back to Work
--- NOTE | 2019-11-09 21:35 | PDOC ---
Attending Attestation - Resident Resident Name: Gómez Sharma - ED Attending Attestation I have performed the following: I have examined & evaluated the patient, The case was reviewed & discussed with the resident, I agree w/resident's findings & plan - HPI HPI: 11/09/19 21:32 Patient is 48M with history of DM type 1 here today complaining of 2 day of fever, chills, vomiting and bodyaches, malaise. Patient reports several positive sick contacts in his family. He also complains of some chest pain after an episode of vomiting. Patient reports that his blood sugars have spiked to the 500s. Endorses associated headaches. Denies abdominal pain, dysuria. denies getting flu vaccine this year. 11/09/19 22:34 - Physicial Exam PE: 11/09/19 21:32 agree with the resident's HPI and PE as documented in the electronic medical record. NAD, malaised appearing, EOMI, PERRL, nl conjunctiva, anicteric; neck supple. lungs clear, tachycardia. abdomen soft nontender. no rebound, guarding. Back nontender. BARRIENTOS x4, no focal neuro deficits. No peripheral edema. normal color for ethnicity, WWP. no rash 11/09/19 22:34 - Medical Decision Making 11/09/19 21:32 Vital Signs Temp Pulse Resp BP Pulse Ox 102.4 F H 107 H 20 127/66 98 11/09/19 20:08 11/09/19 20:08 11/09/19 20:08 11/09/19 20:08 11/09/19 20:08 vitals with fever, tachy. normal sats. hemodynamically appropriate ddx. viral syndrome, pna, DKA, HHS, dehydration, anemia, influenza. send off for flu test/basic labs, sepsis orders, lactic, CMP, EKG, CXR, reassess given analgesia, IVF, reassess ECG is sinus rhythm at 93 bpm. no elevations or depressions. no e/o pericarditis 11/09/19 21:34 Glucose is mildly elevated, likely stress from infection flu test_Positive for flu A. will treat with Tamiflu given acuity of sx and h/o DM, with high risk for complications no e/o anion gap or acidosis. likely dehydration from viral illness/flu. cxr is clear, no e/o pneumonia. Urine with glucose and ketones, +beta hydroxybutyrate, but pt is likely dehydration from n/v and flu illness does not appear to be DKA based on labs and clinical picture. given IVF hydration, analgesia and antipyretics, reassess tachy improving, Fever coming down pt tolerating PO intake supportive care and rx tamiflu x 5 days. hydration contact precautions, hand hygiene and washing, avoid interaction with immuncompromised, , young children or elderly patients. especially until 24 hour of being fever - free pt made aware of impression and plan, agreeable. 11/09/19 22:31 11/09/19 22:34 Heart Score/ECG Review #1 ECG reviewed & interpreted by me at: 21:30 General ECG Interpretation: Sinus Rhythm, Normal Rate, Normal Intervals 11/09/19 21:34 EKG normal sinus rhythm 93 bpm, no interval abnormalities, narrow QRS, ST and T wave segments and morphology normal. Nonspecific T wave abnormalities
[2019-11-09 21:40] LABS: VENOUS PC02 38.9 mmHg (38-52); VENOUS PH 7.39 (7.31-7.41)
[2019-11-09 21:41] LABS: VENOUS PO2 < 49 mmHg (28-48)
[2019-11-09] MEDS ORDERED: OSELTAMIVIR PHOSPHATE 75 MG CAPSULE PO ONE (21:48)
[2019-11-09 21:53] LABS: BASO % 0.6 % (0-2.0); HEMATOCRIT 41.1 % (35.4-49); LYMPH % 8.1 % (8-40); MCH 31.1 pg (25.7-33.7); MCHC 34.1 g/dl (32.0-35.9); MEAN CELL VOLUME 91.2 fl (80-96); MEAN PLT VOLUME 10.2 fl (7.5-11.1); MONO % 6.6 % (3.8-10.2); NEUT % 84.7 % (42.8-82.8); PLATELET COUNT 198 K/MM3 (134-434); RDW 13.1 % (11.9-15.9)
[2019-11-09] MEDS ORDERED: KETOROLAC TROMETHAMINE 15 MG/ML VIAL IVPUSH ONE (21:54)
[2019-11-09] MEDS ORDERED: OSELTAMIVIR PHOSPHATE 75 MG CAPSULE ONE (21:58)
[2019-11-09] MEDS ORDERED: KETOROLAC TROMETHAMINE 15 MG/ML VIAL ONE (21:58)
[2019-11-09 22:02] LABS: ALBUMIN 4.2 g/dl (3.4-5.0); BILIRUBIN,TOTAL 0.8 mg/dL (0.2-1); BLOOD UREA NITROGEN 14.3 mg/dL (7-18); CALCIUM 8.6 mg/dL (8.5-10.1); CREATININE 1.3 mg/dL (0.55-1.3); POTASSIUM 4.4 mmol/L (3.5-5.1); TOT PROT 7.3 g/dl (6.4-8.2)
[2019-11-09 22:11] LABS: URINE APPEARANCE CLEAR; URINE BILIRUBIN NEGATIVE (NEGATIVE); URINE COLOR YELLOW; URINE GLUCOSE (UA) 3+ (NEGATIVE); URINE KETONE 4+ (NEGATIVE); URINE LEUK ESTERASE NEGATIVE (NEGATIVE); URINE NITRITE NEGATIVE (NEGATIVE); URINE PROTEIN 1+ (NEGATIVE); URINE UROBILINOGEN 0.2 mg/dL (0.2-1.0)
[2019-11-09 22:15] LABS: INR 1.29 (0.83-1.09); PROTHROMBIN TIME (PATIENT) 15.3 SEC (9.7-13.0)
[2019-11-09 22:17] LABS: ACTIVATED PTT 34.2 SECONDS (25.2-36.5)
[2019-11-09 23:32] VITALS: BP 103/52; PULSE 90; TEMP 100.8
--- NOTE | 2019-11-10 17:37 | EKG ---
Test Reason : Blood Pressure : / mmHG Vent. Rate : 093 BPM Atrial Rate : 093 BPM P-R Int : 132 ms QRS Dur : 082 ms QT Int : 324 ms P-R-T Axes : 060 062 050 degrees QTc Int : 402 ms NORMAL SINUS RHYTHM NORMAL ECG WHEN COMPARED WITH ECG OF 20-APR-2018 12:41, VENT. RATE HAS INCREASED BY 35 BPM CLINICAL CORRELATION IS RECOMMENDED Confirmed by SCHUYLER DALEY, CAMRYN ([id number]) on 11/10/2019 5:36:33 PM Referred By: Confirmed By:CAMRYN PAYAN MD
== END 2019-11-10 00:34 | disposition home or self-care (01) ==
LOC: JER 19:59
PROC: 3E0333Z Introduction of Anti-inflammatory into Peripheral Vein, Percutaneous Approach (ICD-10-PCS; principal; 2019-11-09)
PROC: 3E033GC Introduction of Other Therapeutic Substance into Peripheral Vein, Percutaneous Approach (ICD-10-PCS; 2019-11-09)
PROC: 3E0337Z Introduction of Electrolytic and Water Balance Substance into Peripheral Vein, Percutaneous Approach (ICD-10-PCS; 2019-11-09)
PROC: 3E033NZ Introduction of Analgesics, Hypnotics, Sedatives into Peripheral Vein, Percutaneous Approach (ICD-10-PCS; 2019-11-09)
DX: J09.X2 Influenza due to identified novel influenza A virus with other respiratory manifestations (principal); E11.9 Type 2 diabetes mellitus without complications
CPT/HCPCS: 36415; 71045-TC-FY; 80053; 81003; 82010; 82803; 82962; 83605; 85025; 85610; 85730; 87040; 87077; 87086; 87804; 93005; 93010; 99284-25; J0131; J7030

== ENCOUNTER 2020-05-03 08:53 | Observation (INO) | payer OTHER ==
[2020-05-03 09:58] LABS: BASO % 0.6 % (0-2.0); EOS % 0.6 % (0-4.5); HEMATOCRIT 41.8 % (35.4-49); LYMPH % 23.3 % (8-40); MCH 30.7 pg (25.7-33.7); MCHC 33.4 g/dl (32.0-35.9); MEAN CELL VOLUME 92.1 fl (80-96); MONO % 5.1 % (3.8-10.2); NEUT % 70.4 % (42.8-82.8); RBC 4.54 M/mm3 (4.00-5.60); RDW 13.1 % (11.9-15.9); WHITE BLOOD COUNT 6.6 K/mm3 (4.0-10.0)
[2020-05-03 10:14] LABS: MEAN PLT VOLUME 10.9 fl (7.5-11.1); PLATELET COUNT 215 K/MM3 (134-434)
[2020-05-03 10:17] LABS: ALBUMIN 3.8 g/dl (3.4-5.0); ALK PHOS 97 U/L (45-117); ANION GAP 9 MMOL/L (8-16); BILIRUBIN,TOTAL 0.6 mg/dL (0.2-1); BLOOD UREA NITROGEN 15.1 mg/dL (7-18); CALCIUM 9.1 mg/dL (8.5-10.1); CHLORIDE 102 mmol/L (98-107); CO2 24 mmol/L (21-32); CREATININE 1.4 mg/dL (0.55-1.3); POTASSIUM 4.6 mmol/L (3.5-5.1); SGOT/AST 23 U/L (15-37); SGPT/ALT 26 U/L (13-61); SODIUM 134 mmol/L (136-145)
[2020-05-03] MEDS ORDERED: ASPIRIN 325 MG TABLET PO ONE (10:33)
[2020-05-03 10:42] LABS: GLUCOSE,RANDOM 571 mg/dL (74-106)
[2020-05-03] MEDS ORDERED: SODIUM CHLORIDE 1,000 ML IV STA (10:43)
[2020-05-03] MEDS ORDERED: ASPIRIN 81 MG CHEWABLE TABLETS ONE (11:06)
[2020-05-03] MEDS: SODIUM CHLORIDE 1,000 ML IV SCH (12:48)
[2020-05-03 16:13] VITALS: BMI 20.6
[2020-05-03] MEDS ORDERED: INSULIN SLIDING SCALE (NOVOLOG) 1 VIAL SQ SCH (16:30)
[2020-05-03] MEDS: INSULIN SLIDING SCALE (NOVOLOG) 1 VIAL SQ SCH ×2 (16:56→21:44)
[2020-05-03] MEDS ORDERED: ATORVASTATIN CA 20 MG TABLET (FP) PO SCH (22:00)
[2020-05-04] MEDS: INSULIN SLIDING SCALE (NOVOLOG) 1 VIAL SQ SCH ×3 (06:07→17:41)
[2020-05-04 06:54] LABS: CHOLESTEROL 164 mg/dL (50-200); HDL CHOLESTEROL 73 mg/dL (40-60); LDL CHOLESTEROL (ONLY SJRH) 78 mg/dL (5-100); TRIGLYCERIDES 85 mg/dL (0-150)
[2020-05-04] MEDS ORDERED: INSULIN (LEVEMIR) 100 UNITS/ML UNITS SQ ONE (08:30)
[2020-05-04] MEDS ORDERED: ASPIRIN 81 MG CHEWABLE TABLETS PO SCH (10:00)
[2020-05-04] MEDS: SODIUM CHLORIDE 1,000 ML IV SCH (11:47)
[2020-05-04 15:29] VITALS: BP 117/72; PULSE 72; TEMP 97.8
== END 2020-05-04 18:41 | disposition home or self-care (01) ==
LOC: JER 08:53 → JERBED 11:10 → J4W 15:30
PROVIDERS: ADMIT Internal Medicine; ATTEND Internal Medicine
PROC: 3E013VG Introduction of Insulin into Subcutaneous Tissue, Percutaneous Approach (ICD-10-PCS; principal; 2020-05-03)
PROC: 3E0337Z Introduction of Electrolytic and Water Balance Substance into Peripheral Vein, Percutaneous Approach (ICD-10-PCS; 2020-05-03)
DX: R07.9 Chest pain, unspecified (principal); E11.649 Type 2 diabetes mellitus with hypoglycemia without coma; E78.5 Hyperlipidemia, unspecified; F41.9 Anxiety disorder, unspecified; Z91.14 Patient's other noncompliance with medication regimen; Z79.4 Long term (current) use of insulin; R63.1 Polydipsia; Z82.49 Family history of ischemic heart disease and other diseases of the circulatory system
CPT/HCPCS: 36415; 71045-TC-FY; 80053; 80061; 82550; 82553; 82962; 83036; 83721; 84484; 85025; 93005; 93010; 96360; 96361; 96372; 99285-25; G0378; U0003

== ENCOUNTER 2021-01-29 20:17 | Emergency (ER) | payer OTHER ==
[2021-01-29 20:52] VITALS: BP 124/75; PULSE 96; TEMP 97.8; BMI 20.3
== END 2021-01-29 22:27 | disposition home or self-care (01) ==
LOC: JERFT 20:17 → JER 20:17 → JERFT 22:27
DX: R45.82 Worries (principal)
CPT/HCPCS: 99281-25